=== PATIENT | male | born 1965 | race Caucasian/White ===

== ENCOUNTER → 2021-05-31 09:14 | Outpatient (BNVA) | payer OTHER, SELFPAY | PROVIDERS: Visit Provider Internal Medicine | DX: L40.9 Psoriasis, unspecified (principal); M48.00 Spinal stenosis, site unspecified; M25.50 Pain in unspecified joint; Z79.899 Other long term (current) drug therapy; Z11.59 Encounter for screening for other viral diseases; Z11.1 Encounter for screening for respiratory tuberculosis; Z79.1 Long term (current) use of non-steroidal anti-inflammatories (NSAID); F17.210 Nicotine dependence, cigarettes, uncomplicated | CPT/HCPCS: 99204 ==

== ENCOUNTER 2021-05-31 11:47 | Outpatient (CLI) | payer OTHER, SELFPAY ==
--- NOTE | 2021-05-31 11:54 | XR_ITS ---
WS: [id number] Exam: XR foot LT 2V [id number] Date/Time of Exam: 05/31/2021 11:54 AM Reason For Exam: M25.50 - Pain in unspecified joint Findings: The foot was examined in multiple views and reveals no fractures or displacements of bone. No bony a nomalies are noted. The bony elements are in adequate alignment. The joint spaces are smooth and eq uidistant. Small plantar heel spur XR/XR foot LT 2V 50057 IMPRESSION: Negative left foot.
--- NOTE | 2021-05-31 11:54 | XR_ITS ---
WS: [id number] Exam: XR hand LT 2V 95089 Date/Time of Exam: 05/31/2021 11:54 AM Reason For Exam: M48.00 - Spinal stenosis, site unspecified Findings: No fractures, soft tissue swelling, or unusual calcifications are noted. The hand shows normal bony alignment. There is no irregularity of the bony architecture. XR/XR hand LT 2V 95484 IMPRESSION: Normal left hand.
--- NOTE | 2021-05-31 11:54 | XR_ITS ---
WS: [id number] Exam: XR foot RT 2V [id number] Date/Time of Exam: 05/31/2021 11:54 AM Reason For Exam: M25.50 - Pain in unspecified joint Findings: The foot was examined in multiple views and reveals no fractures or displacements of bone. No bony a nomalies are noted. The bony elements are in adequate alignment. The joint spaces are smooth and eq uidistant. XR/XR foot RT 2V 19360 IMPRESSION: Negative right foot.
--- NOTE | 2021-05-31 11:54 | XR_ITS ---
WS: [id number] Exam: XR lumbar spine 2-3V* [id number] Date/Time of Exam: 05/31/2021 11:54 AM Reason For Exam: M48.00 - Spinal stenosis, site unspecified No fracture or dislocation. Mild spondylosis. Disc spaces are relatively well maintained. Mild levosc oliosis. Mild facet DJD. XR/XR lumbar spine 2-3V* 67065 IMPRESSION: 1. No fracture or malalignment. 2. Mild degenerative changes and minimal scoliosis
--- NOTE | 2021-05-31 11:54 | XR_ITS ---
WS: [id number] Exam: XR sacroiliac jts m 3V 45791 Date/Time of Exam: 05/31/2021 11:54 AM Reason For Exam: L40.9 - Psoriasis, unspecified No fracture or dislocation. 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 The sacroiliac joints are open. XR/XR sacroiliac jts m 3V 87779 IMPRESSION: 1. 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 2. No sign of fracture, fusion or other significant finding.
--- NOTE | 2021-05-31 11:54 | XR_ITS ---
WS: [id number] Exam: XR hand RT 2V 05948 Date/Time of Exam: 05/31/2021 11:54 AM Reason For Exam: M48.00 - Spinal stenosis, site unspecified Findings: No fractures, soft tissue swelling, or unusual calcifications are noted. The hand shows normal bony alignment. There is no irregularity of the bony architecture. XR/XR hand RT 2V 45060 IMPRESSION: Normal right hand.
[2021-05-31 12:34] LABS: Basophils # 0.1 10^3/uL (0.0-0.1); Basophils % 0.8 %; Eosinophils # 0.2 10^3/uL (0.0-0.8); Hematocrit 46.8 % (42.0-52.0); Lymphocytes # 3.4 10^3/uL (0.8-4.8); Lymphocytes % 37.3 %; Mean Corpuscular HGB Conc 32.1 g/dL (30.0-36.0); Mean Corpuscular Hemoglobin 30.4 pg (28.0-34.0); Mean Corpuscular Volume 94.7 fl (80-94); Mean Platelet Volume 10.1 fL (7.4-10.4); Monocytes # 0.6 10^3/uL (0.2-0.9); Monocytes % 6.6 %; Neutrophils # 4.88 10^3/uL (1.8-7.7); Nucleated Red Blood Cells % 0 %; Platelet Count 272 10^3/cmm (130-400); Red Blood Count 4.94 10^6/uL (4.1-5.3); White Blood Count 9.2 10^3/uL (4.0-10.0)
[2021-05-31 13:04] LABS: Alanine Aminotransferase 35 U/L (0-41); Albumin Level 4.5 g/dL (3.5-5.2); Alkaline Phosphatase 59 IU/L (40-130); Anion Gap 13.4 (5-19); Aspartate Amino Transferase 25 U/L (0-40); Blood Urea Nitrogen 13 mg/dL (6-20); C Reactive Protein 1.1 mg/L (0.0-4.9); Calcium 9.8 mg/dL (8.5-10.5); Carbon Dioxide 27 mmol/L (22-29); Chloride 103 mmol/L (98-107); Globulin 2.5 g/dL (1.3-4.6); Glomerular Filtration Rate 101.1 mL/min (90-130); Glucose 93 mg/dL (65-115); Osmolality Calculated 288 mOsm/kg (285-295); Potassium 4.4 mmol/L (3.5-5.1); Sodium 139 mmol/L (136-145); Total Bilirubin 0.3 mg/dL (0.15-1.2)
[2021-05-31 13:18] LABS: HIV 1 & 2 Antibody Non-Reactive (Non-Reactiv); HIV 1 & 2 Antigen Non-Reactive (Non-Reactiv)
[2021-05-31 13:30] LABS: Hepatitis B Core AB, Total Non-Reactive (Nonreactive); Hepatitis B Surface Antigen Non-Reactive (Nonreactive); Hepatitis C Virus Antibody Non-Reactive (Nonreactive)
[2021-05-31 14:26] LABS: Vitamin B12 584 pg/mL (232-1245)
[2021-06-04 10:59] LABS: Erythrocyte Sedimentation Rate 5 mm/hr (0-10)
[2021-06-04 15:27] LABS: Quantiferon Mitogen >10.00 IU/mL; Quantiferon Nil 0.05 IU/mL; Quantiferon Plus TB1 0.03 IU/mL; Quantiferon Plus TB2 0.02 IU/mL; Quantiferon TB Gold NEGATIVE (NEGATIVE)
== END 2021-05-31 11:48 | disposition home or self-care (01) ==
LOC: RAD 11:52
PROVIDERS: Visit Provider Internal Medicine
DX: M25.50 Pain in unspecified joint (principal); M48.00 Spinal stenosis, site unspecified; L40.9 Psoriasis, unspecified; Z79.899 Other long term (current) drug therapy; Z11.59 Encounter for screening for other viral diseases; Z11.1 Encounter for screening for respiratory tuberculosis
CPT/HCPCS: 36415; 72100; 72202; 73120; 73620; 80053; 82607; 85025; 85651; 86140; 86480; 86704; 86803; 87340; 87806